=== PATIENT | male | born 1930 | race Caucasian/White ===

== ENCOUNTER → 2016-11-02 | Outpatient (CLI) | payer MEDICARE | END | disposition home or self-care (01) | LOC: WOUND 08:43 | PROVIDERS: ATTEND Internal Medicine | DX: E11.622 Type 2 diabetes mellitus with other skin ulcer (principal); L97.811 Non-pressure chronic ulcer of other part of right lower leg limited to breakdown of skin; E78.5 Hyperlipidemia, unspecified; Z87.891 Personal history of nicotine dependence; Z72.89 Other problems related to lifestyle; Z96.641 Presence of right artificial hip joint | CPT/HCPCS: 97597; G0463; WOU0463 ==

== ENCOUNTER → 2016-11-22 | Outpatient (CLI) | payer MEDICARE | END | disposition home or self-care (01) | LOC: WOUND 13:29 | PROVIDERS: ATTEND Internal Medicine Infectious Disease | DX: E11.622 Type 2 diabetes mellitus with other skin ulcer (principal); L97.811 Non-pressure chronic ulcer of other part of right lower leg limited to breakdown of skin; E78.5 Hyperlipidemia, unspecified; Z72.89 Other problems related to lifestyle; Z87.891 Personal history of nicotine dependence | CPT/HCPCS: G0463; WOU0463 ==

== ENCOUNTER → 2016-11-29 | Outpatient (CLI) | payer MEDICARE | END | disposition home or self-care (01) | LOC: WOUND 14:00 | PROVIDERS: ATTEND Nurse Practitioner Family | DX: E11.622 Type 2 diabetes mellitus with other skin ulcer (principal); L97.811 Non-pressure chronic ulcer of other part of right lower leg limited to breakdown of skin; I87.331 Chronic venous hypertension (idiopathic) with ulcer and inflammation of right lower extremity; E78.5 Hyperlipidemia, unspecified; Z87.891 Personal history of nicotine dependence; Z72.89 Other problems related to lifestyle; Z96.641 Presence of right artificial hip joint | CPT/HCPCS: 15271; 29581; Q4133 ==

== ENCOUNTER → 2016-12-06 | Outpatient (CLI) | payer MEDICARE | END | disposition home or self-care (01) | LOC: WOUND 14:00 | PROVIDERS: ATTEND Nurse Practitioner Family | DX: E11.622 Type 2 diabetes mellitus with other skin ulcer (principal); L97.812 Non-pressure chronic ulcer of other part of right lower leg with fat layer exposed; I87.331 Chronic venous hypertension (idiopathic) with ulcer and inflammation of right lower extremity; E78.5 Hyperlipidemia, unspecified; Z87.891 Personal history of nicotine dependence; Z72.89 Other problems related to lifestyle; Z96.641 Presence of right artificial hip joint | CPT/HCPCS: 15271; 29581; Q4172 ==

== ENCOUNTER → 2016-12-13 | Outpatient (CLI) | payer MEDICARE | END | disposition home or self-care (01) | LOC: WOUND 14:10 | PROVIDERS: ATTEND Internal Medicine Infectious Disease | DX: E11.622 Type 2 diabetes mellitus with other skin ulcer (principal); L97.812 Non-pressure chronic ulcer of other part of right lower leg with fat layer exposed; E78.5 Hyperlipidemia, unspecified; Z87.891 Personal history of nicotine dependence; Z72.89 Other problems related to lifestyle; Z96.641 Presence of right artificial hip joint | CPT/HCPCS: 15271; Q4172 ==

== ENCOUNTER → 2017-01-03 | Outpatient (CLI) | payer MEDICARE | END | disposition home or self-care (01) | LOC: WOUND 13:32 | PROVIDERS: ATTEND Nurse Practitioner Family | DX: I87.331 Chronic venous hypertension (idiopathic) with ulcer and inflammation of right lower extremity (principal); E11.622 Type 2 diabetes mellitus with other skin ulcer; L97.812 Non-pressure chronic ulcer of other part of right lower leg with fat layer exposed; E78.5 Hyperlipidemia, unspecified; Z96.641 Presence of right artificial hip joint; Z87.891 Personal history of nicotine dependence; Z72.89 Other problems related to lifestyle | CPT/HCPCS: 15271; Q4172 ==

== ENCOUNTER → 2017-01-10 | Outpatient (CLI) | payer MEDICARE | END | disposition home or self-care (01) | LOC: WOUND 14:06 | PROVIDERS: ATTEND Internal Medicine Infectious Disease | DX: E11.622 Type 2 diabetes mellitus with other skin ulcer (principal); I87.331 Chronic venous hypertension (idiopathic) with ulcer and inflammation of right lower extremity; L97.812 Non-pressure chronic ulcer of other part of right lower leg with fat layer exposed; E78.5 Hyperlipidemia, unspecified; Z72.89 Other problems related to lifestyle; Z87.891 Personal history of nicotine dependence | CPT/HCPCS: 15271; Q4132 ==

== ENCOUNTER → 2017-01-17 | Outpatient (CLI) | payer MEDICARE | END | disposition home or self-care (01) | LOC: WOUND 14:04 | PROVIDERS: ATTEND Family Medicine | DX: E11.622 Type 2 diabetes mellitus with other skin ulcer (principal); L97.812 Non-pressure chronic ulcer of other part of right lower leg with fat layer exposed; I87.331 Chronic venous hypertension (idiopathic) with ulcer and inflammation of right lower extremity; E78.5 Hyperlipidemia, unspecified; Z72.89 Other problems related to lifestyle; Z87.891 Personal history of nicotine dependence; Z96.641 Presence of right artificial hip joint | CPT/HCPCS: G0463; WOU0463 ==

== ENCOUNTER → 2017-01-24 | Outpatient (CLI) | payer MEDICARE | END | disposition home or self-care (01) | LOC: WOUND 13:07 | PROVIDERS: ATTEND Nurse Practitioner Family | DX: E11.622 Type 2 diabetes mellitus with other skin ulcer (principal); I87.331 Chronic venous hypertension (idiopathic) with ulcer and inflammation of right lower extremity; L97.812 Non-pressure chronic ulcer of other part of right lower leg with fat layer exposed; E78.5 Hyperlipidemia, unspecified; M10.9 Gout, unspecified; Z87.891 Personal history of nicotine dependence; Z72.89 Other problems related to lifestyle; Z96.641 Presence of right artificial hip joint | CPT/HCPCS: 17250 ==

== ENCOUNTER → 2017-01-31 | Outpatient (CLI) | payer MEDICARE | END | disposition home or self-care (01) | LOC: WOUND 13:23 | PROVIDERS: ATTEND Nurse Practitioner Family | DX: E11.622 Type 2 diabetes mellitus with other skin ulcer (principal); L97.812 Non-pressure chronic ulcer of other part of right lower leg with fat layer exposed; I87.331 Chronic venous hypertension (idiopathic) with ulcer and inflammation of right lower extremity; E78.5 Hyperlipidemia, unspecified; Z87.891 Personal history of nicotine dependence; Z72.89 Other problems related to lifestyle; Z96.641 Presence of right artificial hip joint | CPT/HCPCS: 97597 ==

== ENCOUNTER → 2017-02-07 | Outpatient (CLI) | payer MEDICARE | END | disposition home or self-care (01) | LOC: WOUND 13:30 | PROVIDERS: ATTEND Internal Medicine Infectious Disease | DX: E11.622 Type 2 diabetes mellitus with other skin ulcer (principal); L97.812 Non-pressure chronic ulcer of other part of right lower leg with fat layer exposed; I87.331 Chronic venous hypertension (idiopathic) with ulcer and inflammation of right lower extremity; E78.5 Hyperlipidemia, unspecified; Z72.89 Other problems related to lifestyle; Z87.891 Personal history of nicotine dependence; Z96.641 Presence of right artificial hip joint | CPT/HCPCS: G0463; WOU0463 ==

== ENCOUNTER 2018-03-05 14:38 | Inpatient (IN) | payer MEDICARE ==
[~2018-03-05] VITALS: Ht 175.3 cm; Wt 77.4 kg
[2018-03-05] MEDS ORDERED: SODIUM CHLORIDE FLUSH 10ML SYR IVF ONE (15:00)
[2018-03-05 15:11] LABS: MEAN CORPUSCULAR HEMOGLOBIN 23.8 pg (27.5-34.5); MEAN CORPUSCULAR HGB CONC 31.4 g/dL (33.2-36.2); MEAN CORPUSCULAR VOLUME 75.9 fL (81-97); MEAN PLATELET VOLUME 7.5 fL (7.4-10.4); PLATELET COUNT 511 x10^3/uL (130-400); RED BLOOD COUNT 2.99 x10^6/uL (4.38-5.82); RED CELL DISTRIBUTION WIDTH 21.6 % (9.4-14.8)
[2018-03-05 15:18] LABS: ALBUMIN 3.2 g/dL (3.4-5.0); ANION GAP 13 mmol/L (5-15); CALCIUM 9.2 mg/dL (8.5-10.1); CHLORIDE 91 mmol/L (98-107); CREATININE 1.94 mg/dL (0.7-1.3)
[2018-03-05 15:36] LABS: ABSOLUTE RETICS # 0.093 x10^6/uL (0.5-1.5); RETICULOCYTE COUNT % 3.13 % (0.5-1.5)
[2018-03-05 15:37] LABS: RED BLOOD COUNT 2.96 x10^6/uL (4.38-5.82)
[2018-03-05 15:59] LABS: MD YES
[2018-03-05 16:03] LABS: ALBUMIN 3.2 g/dL (3.4-5.0); LYMPHS% (MANUAL) 7 % (22-44); MONOS#(MANUAL) 1.25 x10^3/uL (0.3-2.7); MONOS% (MANUAL) 11 % (2-9); SEG#(MANUAL) 9.35 x10^3/uL (1.8-6.8); SEGS% (MANUAL) 82 % (42-75)
[2018-03-05 16:05] LABS: <PLATELET ESTIMATE> INCREASED; <PLT MORPHOLOGY> NORMAL PLT MORPH; HYPOCHROMIA 2+; MICROCYTOSIS 2+; POLYCHROMASIA 1+
[2018-03-05 16:11] LABS: INTERNATIONAL NORMALIZED RATIO 1.09 (0.93-1.1); PROTHROMBIN TIME 11.5 Seconds (9.6-11.5)
[2018-03-05] MEDS ORDERED: POTASSIUM CHLORIDE 20 MEQ TAB.ER.PRT PO ONE (16:30)
[2018-03-05 16:33] LABS: % IRON SATURATION 6 % (20-55); ALANINE AMINOTRANSFERASE 21 U/L (12-78); ALKALINE PHOSPHATASE 119 U/L (45-117); BILIRUBIN, DIRECT 0.2 mg/dL (0.1-0.2); BILIRUBIN,INDIRECT 0.2 mg/dL (0.0-2.0); BILIRUBIN,TOTAL 0.4 mg/dL (0.2-1.0); IRON LEVEL 20 mcg/dL (65-175); TOTAL IRON BINDING CAPACITY 328 mcg/dL (250-450); TOTAL PROTEIN 7.3 g/dL (6.4-8.2)
[2018-03-05] MEDS ORDERED: POTASSIUM CHLORIDE 20 MEQ TAB.ER.PRT ONE (16:39)
[2018-03-05 16:40] LABS: FOLATE LEVEL > 20.0 ng/mL (3.1-17.5)
[2018-03-05 16:45] VITALS: BP 127/50
[2018-03-05] MEDS ORDERED: BISACODYL 10 MG SUPP PR PRN (17:00)
[2018-03-05] MEDS ORDERED: hydrALAzine 20 MG/ML, 1ML IVPush PRN (17:00)
[2018-03-05] MEDS ORDERED: ACETAMINOPHEN 325 MG TABLET PO PRN (17:00)
[2018-03-05] MEDS ORDERED: ONDANSETRON 2MG/ML, 2ML IVPush PRN (17:00)
[2018-03-05] MEDS ORDERED: GUAIFENESIN/DM 200-20MG, 10ML UDC PO PRN (17:00)
[2018-03-05 17:10] VITALS: BP 137/53
[2018-03-05 17:25] VITALS: BP 132/72
[2018-03-05] MEDS ORDERED: LORATADINE 10 MG TABLET PO PRN (17:30)
[2018-03-05] MEDS ORDERED: ALBUTEROL SULFATE 2.5 MG/3 ML NPPB PRN (17:30)
[2018-03-05] MEDS ORDERED: FUROSEMIDE 40 MG/4 ML IV ONE (17:30)
[2018-03-05 18:38] VITALS: BP 133/64
[2018-03-05 19:45] VITALS: BP_SYST 101; BP_SYST 103; BP_SYST 110; BP_DIAS 51; BP_DIAS 52; BP_DIAS 57
[2018-03-05] MEDS: ATORVASTATIN 80 MG TABLET PO SCH (21:44)
[2018-03-05] MEDS: INSULIN LISPRO 100 UNITS/ML, PEN SQ-INSULIN SCH (21:47)
[2018-03-05] MEDS ORDERED: METO5TAB5 PO (22:00)
[2018-03-05] MEDS ORDERED: OMEP-110 PO (22:00)
[2018-03-05] MEDS ORDERED: BETA15CR4 EXT (22:00)
[2018-03-05] MEDS ORDERED: TORS100T4 PO (22:00)
[2018-03-05] MEDS ORDERED: ATOR-2 PO (22:00)
[2018-03-05] MEDS ORDERED: APIX5TAB PO (22:00)
[2018-03-05] MEDS ORDERED: SPIR50TA4 PO (22:00)
[2018-03-05] MEDS ORDERED: HALO15CR3 EXT (22:00)
[2018-03-05] MEDS ORDERED: GLYB5TAB3 PO (22:02)
[2018-03-05] MEDS ORDERED: TORS20TA2 PO (22:20)
[2018-03-05] MEDS ORDERED: OMEPRAZOLE 20 MG CAPSULE.DR PO SCH (22:30)
[2018-03-05 23:09] VITALS: BP 125/65
[2018-03-05] MEDS: ZOLPIDEM 5MG TABLET PO PRN (23:09)
[2018-03-06 01:53] VITALS: BP 99/55
[2018-03-06 04:37] LABS: MEAN CORPUSCULAR HEMOGLOBIN 25.2 pg (27.5-34.5); MEAN CORPUSCULAR HGB CONC 32.3 g/dL (33.2-36.2); MEAN CORPUSCULAR VOLUME 77.9 fL (81-97); MEAN PLATELET VOLUME 7.8 fL (7.4-10.4); PLATELET COUNT 446 x10^3/uL (130-400); RED BLOOD COUNT 3.14 x10^6/uL (4.38-5.82); RED CELL DISTRIBUTION WIDTH 21.8 % (9.4-14.8)
[2018-03-06 04:51] LABS: CALCIUM 9.2 mg/dL (8.5-10.1); CHLORIDE 93 mmol/L (98-107)
[2018-03-06 05:05] LABS: ANION GAP 10 mmol/L (5-15); CHOL/HDL RATIO 2.7; CHOLESTEROL, TOTAL 126 mg/dL (140-239); CREATININE 1.64 mg/dL (0.7-1.3); HDL CHOL % 37 % (26-37); HDL CHOLESTEROL (DIRECT) 47 mg/dL (40-60); LDL CHOLESTEROL,CALCULATED 49 mg/dL (54-169); THYROID STIMULATING HORMONE 0.043 mIU/L (0.358-3.740); TRIGLYCERIDES 149 mg/dL (50-200); VLDL CHOLESTEROL 30 mg/dL (0-25)
[2018-03-06 05:06] LABS: BASOPHILS # (AUTO) 0.03 x10^3/uL (0-0.1); BASOPHILS % (AUTO) 0 % (0-1); EOSINOPHILS # (AUTO) 0.17 x10^3/uL (0-0.4); EOSINOPHILS % (AUTO) 2 % (1-7); LYMPHOCYTES # (AUTO) 0.61 x10^3/uL (1-3.4); LYMPHOCYTES % (AUTO) 6 % (22-44); MD SCAN; MONOCYTES # (AUTO) 1.66 x10^3/uL (0.2-0.8); MONOCYTES % (AUTO) 16 % (2-9); NEUTROPHILS # (AUTO) 8.07 x10^3/uL (1.8-6.8); NEUTROPHILS % (AUTO) 77 % (42-75)
[2018-03-06] MEDS ORDERED: POTASSIUM CHLORIDE 20 MEQ TAB.ER.PRT ONE (05:33)
[2018-03-06] MEDS: POTASSIUM CHLORIDE 20 MEQ TAB.ER.PRT PO SCH ×2 (05:35→16:18)
[2018-03-06] MEDS: INSULIN LISPRO 100 UNITS/ML, PEN SQ-INSULIN SCH ×4 (07:00→21:46)
[2018-03-06] MEDS ORDERED: PANTOPROZOLE 40MG TABLET PO SCH (07:30)
[2018-03-06] MEDS ORDERED: METOLAZONE 2.5 MG TABLET PO SCH ×2 (07:30)
[2018-03-06] MEDS ORDERED: GlyBURIDE 5 MG TABLET PO SCH (08:00)
[2018-03-06 08:07] VITALS: BP 120/58
[2018-03-06] MEDS: ALLOPURINOL 300 MG TABLET PO SCH (08:52)
[2018-03-06] MEDS: PANTOPROZOLE 40MG TABLET PO SCH (08:53)
[2018-03-06] MEDS: TORSEMIDE 20 MG TABLET PO SCH (08:53)
[2018-03-06] MEDS: ASCORBIC ACID 500 MG TABLET PO SCH (08:53)
[2018-03-06] MEDS: MAGNESIUM OXIDE 400 MG TABLET PO SCH (08:53)
[2018-03-06] MEDS: METOLAZONE 5 MG TABLET PO SCH (08:53)
[2018-03-06] MEDS: CHOLECALCIFEROL 1,000 UNIT TABLET PO SCH (08:53)
[2018-03-06] MEDS: SPIRONOLACTONE 25 MG TABLET PO SCH (08:53)
[2018-03-06] MEDS ORDERED: FUROSEMIDE 10 MG/ML ORAL SOL PO SCH (09:00)
[2018-03-06] MEDS: FLUTICASONE NASAL SPRAY 16GM NAS SCH (09:00)
[2018-03-06 14:10] VITALS: BP 136/68
[2018-03-06] MEDS: IRON SUCROSE COMPLEX 100MG/5ML IV SCH (16:26)
[2018-03-06 19:45] VITALS: BP 137/70
[2018-03-06] MEDS ORDERED: TRAZODONE 50MG TABLET PO ONE (21:30)
[2018-03-06] MEDS: ATORVASTATIN 80 MG TABLET PO SCH (21:38)
[2018-03-07 03:58] VITALS: BP 124/57
[2018-03-07 04:54] LABS: MEAN CORPUSCULAR VOLUME 78.3 fL (81-97)
[2018-03-07 04:55] LABS: MEAN CORPUSCULAR HEMOGLOBIN 25.1 pg (27.5-34.5); MEAN PLATELET VOLUME 7.7 fL (7.4-10.4); PLATELET COUNT 436 x10^3/uL (130-400); RED CELL DISTRIBUTION WIDTH 22.5 % (9.4-14.8)
[2018-03-07 05:07] LABS: ANION GAP 8 mmol/L (5-15); CALCIUM 9.5 mg/dL (8.5-10.1); CHLORIDE 94 mmol/L (98-107)
[2018-03-07 05:09] LABS: CREATININE 1.44 mg/dL (0.7-1.3)
[2018-03-07 05:17] LABS: BASOPHILS # (AUTO) 0.01 x10^3/uL (0-0.1); BASOPHILS % (AUTO) 0 % (0-1); EOSINOPHILS # (AUTO) 0.21 x10^3/uL (0-0.4); EOSINOPHILS % (AUTO) 2 % (1-7); LYMPHOCYTES # (AUTO) 0.62 x10^3/uL (1-3.4); LYMPHOCYTES % (AUTO) 7 % (22-44); MD SCAN; MONOCYTES # (AUTO) 1.65 x10^3/uL (0.2-0.8); MONOCYTES % (AUTO) 18 % (2-9); NEUTROPHILS # (AUTO) 6.69 x10^3/uL (1.8-6.8); NEUTROPHILS % (AUTO) 73 % (42-75)
[2018-03-07] MEDS: INSULIN LISPRO 100 UNITS/ML, PEN SQ-INSULIN SCH ×4 (07:00→20:02)
[2018-03-07] MEDS: PANTOPROZOLE 40MG TABLET PO SCH (07:30)
[2018-03-07] MEDS: METOLAZONE 5 MG TABLET PO SCH (07:30)
[2018-03-07 07:50] VITALS: BP 116/58
[2018-03-07] MEDS: POTASSIUM CHLORIDE 20 MEQ TAB.ER.PRT PO SCH ×2 (09:00→15:03)
[2018-03-07] MEDS: ALLOPURINOL 300 MG TABLET PO SCH (09:00)
[2018-03-07] MEDS: MAGNESIUM OXIDE 400 MG TABLET PO SCH (09:00)
[2018-03-07] MEDS: CHOLECALCIFEROL 1,000 UNIT TABLET PO SCH (09:00)
[2018-03-07] MEDS: ASCORBIC ACID 500 MG TABLET PO SCH (09:00)
[2018-03-07] MEDS: FLUTICASONE NASAL SPRAY 16GM NAS SCH (09:00)
[2018-03-07] MEDS: TORSEMIDE 20 MG TABLET PO SCH (09:00)
[2018-03-07] MEDS: SPIRONOLACTONE 25 MG TABLET PO SCH (09:00)
[2018-03-07] MEDS ORDERED: PROPOFOL 10 MG/ML, 20ML ONE (12:20)
[2018-03-07] MEDS ORDERED: ALBUTEROL SULFATE 2.5 MG/3 ML ONE (13:07)
[2018-03-07 14:00] VITALS: BP 124/64
[2018-03-07] MEDS ORDERED: ALBUTEROL SULFATE 2.5 MG/3 ML NPPB PRN (15:30)
[2018-03-07] MEDS: IRON SUCROSE COMPLEX 100MG/5ML IV SCH (17:54)
[2018-03-07 19:24] VITALS: BP 119/66
[2018-03-07] MEDS: ZOLPIDEM 5MG TABLET PO PRN (20:00)
[2018-03-07] MEDS: ATORVASTATIN 80 MG TABLET PO SCH (20:00)
[2018-03-08 00:25] VITALS: BP 114/62
[2018-03-08 05:20] LABS: MEAN CORPUSCULAR HEMOGLOBIN 25.1 pg (27.5-34.5); MEAN CORPUSCULAR HGB CONC 31.8 g/dL (33.2-36.2); MEAN CORPUSCULAR VOLUME 78.9 fL (81-97); MEAN PLATELET VOLUME 7.8 fL (7.4-10.4); PLATELET COUNT 389 x10^3/uL (130-400); RED BLOOD COUNT 3.31 x10^6/uL (4.38-5.82); RED CELL DISTRIBUTION WIDTH 22.5 % (9.4-14.8)
[2018-03-08 05:32] LABS: CHLORIDE 97 mmol/L (98-107)
[2018-03-08 05:36] LABS: ANION GAP 10 mmol/L (5-15); CALCIUM 9.2 mg/dL (8.5-10.1); CREATININE 1.54 mg/dL (0.7-1.3)
[2018-03-08 05:47] LABS: BASOPHILS # (AUTO) 0.05 x10^3/uL (0-0.1); BASOPHILS % (AUTO) 0 % (0-1); EOSINOPHILS # (AUTO) 0.06 x10^3/uL (0-0.4); EOSINOPHILS % (AUTO) 0 % (1-7); LYMPHOCYTES # (AUTO) 0.62 x10^3/uL (1-3.4); LYMPHOCYTES % (AUTO) 4 % (22-44); MD SCAN; MONOCYTES # (AUTO) 1.95 x10^3/uL (0.2-0.8); MONOCYTES % (AUTO) 13 % (2-9); NEUTROPHILS # (AUTO) 12.75 x10^3/uL (1.8-6.8); NEUTROPHILS % (AUTO) 83 % (42-75)
[2018-03-08] MEDS: INSULIN LISPRO 100 UNITS/ML, PEN SQ-INSULIN SCH ×2 (07:00→11:00)
[2018-03-08 07:05] VITALS: BP 125/63
[2018-03-08] MEDS: POTASSIUM CHLORIDE 20 MEQ TAB.ER.PRT PO SCH (09:00)
[2018-03-08] MEDS: FLUTICASONE NASAL SPRAY 16GM NAS SCH (09:00)
[2018-03-08] MEDS ORDERED: POTASSIUM CHLORIDE 20 MEQ TAB.ER.PRT PO ONE (09:00)
[2018-03-08] MEDS ORDERED: FERR325T18 PO (09:06)
[2018-03-08] MEDS: CHOLECALCIFEROL 1,000 UNIT TABLET PO SCH (09:08)
[2018-03-08] MEDS: ASCORBIC ACID 500 MG TABLET PO SCH (09:08)
[2018-03-08] MEDS: SPIRONOLACTONE 25 MG TABLET PO SCH (09:08)
[2018-03-08] MEDS: TORSEMIDE 20 MG TABLET PO SCH (09:08)
[2018-03-08] MEDS: MAGNESIUM OXIDE 400 MG TABLET PO SCH (09:08)
[2018-03-08] MEDS: ALLOPURINOL 300 MG TABLET PO SCH (09:09)
[2018-03-08] MEDS: PANTOPROZOLE 40MG TABLET PO SCH (09:09)
[2018-03-08] MEDS ORDERED: GLIM1TAB2 PO (09:13)
[2018-03-08] MEDS: METOLAZONE 5 MG TABLET PO SCH (09:17)
[2018-03-08] MEDS ORDERED: POTA20TA14 PO (09:41)
== END 2018-03-08 10:49 | disposition home or self-care (01) | DRG 377 ==
LOC: ED 16:10 → UNDOADMIN 16:19 → EDIP 16:19 → ED 16:36 → EDIP 16:55 → 5SO 18:21 → DCLOUNGE 03-08 10:25
PROVIDERS: ADMIT Internal Medicine; ATTEND Internal Medicine
PROC: 30233N1 Transfusion of Nonautologous Red Blood Cells into Peripheral Vein, Percutaneous Approach (ICD-10-PCS; principal; 2018-03-05)
PROC: 0D5A8ZZ Destruction of Jejunum, Via Natural or Artificial Opening Endoscopic (ICD-10-PCS; 2018-03-07)
PROC: 0D578ZZ Destruction of Stomach, Pylorus, Via Natural or Artificial Opening Endoscopic (ICD-10-PCS; 2018-03-07)
DX: K31.811 Angiodysplasia of stomach and duodenum with bleeding (principal); I50.31 Acute diastolic (congestive) heart failure; N17.9 Acute kidney failure, unspecified; I13.0 Hypertensive heart and chronic kidney disease with heart failure and stage 1 through stage 4 chronic kidney disease, or unspecified chronic kidney disease; E87.1 Hypo-osmolality and hyponatremia; J96.11 Chronic respiratory failure with hypoxia; D50.0 Iron deficiency anemia secondary to blood loss (chronic); I27.20 Pulmonary hypertension, unspecified; I65.23 Occlusion and stenosis of bilateral carotid arteries; I48.0 Paroxysmal atrial fibrillation; E11.22 Type 2 diabetes mellitus with diabetic chronic kidney disease; Z96.641 Presence of right artificial hip joint; N18.3 Chronic kidney disease, stage 3 (moderate); K22.2 Esophageal obstruction; J44.9 Chronic obstructive pulmonary disease, unspecified; E11.51 Type 2 diabetes mellitus with diabetic peripheral angiopathy without gangrene; I25.10 Atherosclerotic heart disease of native coronary artery without angina pectoris; E87.6 Hypokalemia; E78.5 Hyperlipidemia, unspecified; I35.0 Nonrheumatic aortic (valve) stenosis; I07.1 Rheumatic tricuspid insufficiency; G47.30 Sleep apnea, unspecified; K44.9 Diaphragmatic hernia without obstruction or gangrene; Z82.49 Family history of ischemic heart disease and other diseases of the circulatory system; Z86.010 Personal history of colon polyps; Z85.46 Personal history of malignant neoplasm of prostate; Z95.0 Presence of cardiac pacemaker; Z87.891 Personal history of nicotine dependence; Z95.2 Presence of prosthetic heart valve; I25.2 Old myocardial infarction; Z88.0 Allergy status to penicillin
CPT/HCPCS: 36415; 36430; 71045; 76700; 80048; 80061; 80076; 82040; 82607; 82728; 82746; 82962; 83540; 83550; 83735; 83880; 84443; 85025; 85045; 85610; 85730; 86850; 86900; 86923; 93005; 94640; 99285; G0378; J1756; J1940; J2704; J7613; J1815; P9016